=== PATIENT | female | born 1960 | race Caucasian/White ===

== ENCOUNTER 2020-07-19 13:47 | Outpatient (CLI) | payer OTHER ==
--- NOTE | 2020-07-19 16:49 | XRAY Report ---
PROCEDURE: Foot 3 View RT INDICATIONS: PAIN IN RIGHT FOOT TECHNIQUE: 3 views of the foot were acquired. COMPARISON: None FINDINGS: Bones: No fractures or dislocations. No suspicious bony lesions. Soft tissues: No tibiotalar joint effusion. Achilles tendon appears normal. IMPRESSION: No fracture. No osseous lesion. If there is continued clinical concern for pathology, then repeat radha in film radiographs (7-10 days) or advanced imaging (CT, MR, bone scan) should be considered for furt her evaluation. Reviewed by: Maya Johnson MD, PhD on 07/19/2020 4:48 PM PDT Approved by: Maya Johnson MD, PhD on 07/19/2020 4:48 PM PDT Station ID: [id number]
== END 2020-07-19 13:48 | disposition home or self-care (01) ==
LOC: DI.S 13:47
PROVIDERS: ATTEND Nurse Practitioner Family
DX: M79.671 Pain in right foot (principal)

== ENCOUNTER 2021-04-06 08:00 | Outpatient (CLI) | payer OTHER | END 2021-04-06 23:59 | disposition home or self-care (01) | LOC: LAB.S 08:00 | PROVIDERS: ATTEND Emergency Medicine | DX: J30.9 Allergic rhinitis, unspecified (principal) | CPT/HCPCS: 87070; 87220 ==

== ENCOUNTER 2022-08-28 08:13 | Outpatient (CLI) | payer BC ==
--- NOTE | 2022-08-28 16:24 | DEXA Report ---
PROCEDURE: Dexa Spine and/or Hip INDICATIONS: POST MENOPAUSAL TECHNIQUE: Dual energy x-ray absorptiometry (DXA) was performed on a [employer] System. Regions measur ed are the AP Spine, femoral neck, and if needed forearm. COMPARISON: None. FINDINGS: Lumbar Spine: Bone Mineral Density 1.232 g/cm/cm,T score 0.4, normal Left Hip: Bone Mineral Density 0.984 g/cm/cm,T score -0.2, normal Left Femoral Neck: Bone Mineral Density 0.882 g/cm/cm, T score -1.1, minimal osteopenia (T score greater or equal to -1.0: NORMAL) (T score from -1.1 to -2.4: OSTEOPENIA) (T score less than or equal to -2.5 to: OSTEOPOROSIS) Impression: Minimal osteopenia within the left femoral neck. Patients with diagnosis of osteoporosis or osteopenia should have regular bone mineral density assess ment. For those eligible for Medicare, routine testing is allowed once every 2 years. Testing frequ ency can be increased for patients who have rapidly progressing disease or for those who are receivin g medical therapy to restore bone mass. Reviewed by: Delfina Jacobs MD on 08/28/2022 4:22 PM PDT Approved by: Delfina Jacobs MD on 08/28/2022 4:22 PM PDT Station ID: [id number]
== END 2022-08-28 08:14 | disposition home or self-care (01) ==
LOC: DI 08:13
PROVIDERS: ATTEND Nurse Practitioner Family
DX: Z78.0 Asymptomatic menopausal state (principal); M85.88 Other specified disorders of bone density and structure, other site

== ENCOUNTER 2023-02-21 11:00 | Outpatient (CLI) | payer BC | END 2023-02-21 11:01 | disposition home or self-care (01) | LOC: NS 11:00 | PROVIDERS: ATTEND Nurse Practitioner Family | DX: E78.2 Mixed hyperlipidemia (principal); E66.3 Overweight; Z71.3 Dietary counseling and surveillance; Z71.89 Other specified counseling; Z68.27 Body mass index [BMI] 27.0-27.9, adult | CPT/HCPCS: 97802 ==

== ENCOUNTER 2023-09-01 09:22 | Emergency (ER) | payer BC ==
[2023-09-01 10:04] LABS: BASOPHILS # (AUTO) 0.1 10^3/uL (0.0-0.1); BASOPHILS % (AUTO) 0.8 %; EOSINOPHILS # (AUTO) 0.1 10^3/uL (0.0-0.7); HCT - HEMATOCRIT 39.5 % (37.0-47.0); HGB - HEMOGLOBIN 12.9 g/dL (12.0-16.0); LYMPHOCYTES # (AUTO) 1.9 10^3/uL (1.5-3.5); LYMPHOCYTES % (AUTO) 32.3 %; MEAN CORPUSCULAR HEMOGLOBIN 30.9 pg (27.0-31.0); MEAN CORPUSCULAR HGB CONC 32.7 g/dL (32.0-36.0); MEAN CORPUSCULAR VOLUME 94.7 fL (81.0-99.0); MEAN PLATELET VOLUME 10.3 fL (7.9-10.8); MONOCYTES # (AUTO) 0.6 10^3/uL (0.0-1.0); MONOCYTES % (AUTO) 9.2 %; NEUTROPHILS # (AUTO) 3.3 10^3/uL (1.5-6.6); NEUTROPHILS % (AUTO) 55.5 %; PLT - PLATELET COUNT 242 10^3/uL (130-450); RED BLOOD COUNT 4.17 10^6/uL (4.20-5.40); RED CELL DISTRIBUTION WIDTH 12.4 % (12.0-15.0)
--- NOTE | 2023-09-01 10:06 | ED Physician Documentation ---
PD HPI CHEST PAIN - Stated complaint Stated Complaint: CHEST PX,SOA,ABD PX - Chief complaint Chief Complaint: Cardiac - History obtained from History obtained from: Patient - History of Present Illness Timing - onset: How many days ago (2) Timing - onset during: Rest, Light activity Timing - duration: Days (2) Timing - details: Gradual onset, Still present, Waxing and waning Quality: Aching, Pain Review of Systems Constitutional: denies: Fever, Chills Nose: denies: Rhinorrhea / runny nose, Congestion Throat: denies: Sore throat Respiratory: denies: Cough PD PAST MEDICAL HISTORY - Past Medical History Cardiovascular: Hypertension Respiratory: None Endocrine/Autoimmune: None GI: GERD ASSOCIATE ACCOUNT DIRECTOR: None : None HEENT: None Psych: None Musculoskeletal: None Derm: None - Past Surgical History Past Surgical History: Yes - Present Medications Home Medications: Ambulatory Orders Medication Instructions Recorded Confirmed Fexofenadine HCl [Martina] 90 mg PO BID 06/21/13 09/01/23 Fluticasone Furoate [Veramyst] 10 gm NS DAILY 06/21/13 09/01/23 Olopatadine HCl [Patanase] 30.5 gm NS DAILY 06/21/13 09/01/23 Esomeprazole Magnesium [Nexium] 40 mg PO DAILY 07/23/13 09/01/23 lisinopriL [Lisinopril] 5 mg PO DAILY 09/05/17 09/01/23 Azelastine HCl 137 mcg NS DAILY 09/01/23 09/01/23 - Allergies Allergies/Adverse Reactions: Allergies Allergy/AdvReac Type Severity Reaction Status Date / Time lisinopril Allergy Anaphylaxis Verified 09/01/23 09:33 meperidine HCl * Allergy vomiting Verified 09/05/17 20:15 [From Demerol] Sulfa (Sulfonamide Allergy Rash Verified 09/05/17 20:15 Antibiotics) - Social History Does the pt smoke?: No Smoking Status: Never smoker Does the pt drink ETOH?: Yes Does the pt have substance abuse?: No - Immunizations Immunizations are current?: No - POLST Patient has POLST: No PD ED PE NORMAL - Vitals Vital signs reviewed: Yes - General General: Alert and oriented X 3, Well developed/nourished - Cardiac Cardiac: RRR, No murmur - Respiratory Respiratory: Clear bilaterally, Other (focal chestwall markedly tenderness left lower sternal border.) - Abdomen Abdomen: Soft, Non tender - Back Back: No CVA TTP - Derm Derm: Normal color, Warm and dry, No rash, Other (no skin tenderness in back nor axilla. ) - Extremities Extremities: No edema, No calf tenderness / cord Results - Vitals Vitals: Oxygen O2 Source Room air - EKG (time done) 09:28 EKG releavant findings:: EKG personally interpreted by author of this note. Relevant findings are: Rate: Rate (enter#) (78) Rhythm: NSR [place]: Normal Intervals: Normal NH QRS: Normal Ischemia: Normal ST segments. No: ST elevation c/w ischemia, ST depression - Labs Labs: Laboratory Tests 09/01/23 09/01/23 09:56 09:56 WBC 6.0 RBC 4.17 L Hgb 12.9 Hct 39.5 MCV 94.7 MCH 30.9 MCHC 32.7 RDW 12.4 Plt Count 242 MPV 10.3 Neut # (Auto) 3.3 Lymph # (Auto) 1.9 [place] # (Auto) 0.6 Eos # (Auto) 0.1 Baso # (Auto) 0.1 Absolute Nucleated RBC 0.00 Nucleated RBC % 0.0 Sodium 139 Potassium 3.7 Chloride 101 Carbon Dioxide 32 Anion Gap 6.0 BUN 31 H Creatinine 0.9 Estimated GFR (MDRD) 63 L Glucose 103 Calcium 10.3 Total Bilirubin 0.3 AST 26 ALT 24 Alkaline Phosphatase 86 Troponin I High Sens 3.3 Total Protein 7.5 Albumin 4.7 Globulin 2.8 Albumin/Globulin Ratio 1.7 Lipase 36 - Rads (name of study) No standard instances Relevant Findings:: Prelim report reviewed (no acute process), EMP independent interpretation of test PD Medical Decision Making - ED course Complexity details: reviewed results (ECG nonischemic and CXR clear. Troponin normal in the setting of chest pain for over 24 hours. ), re-evaluated patient (elements are c/w costochondral with left chestwall tenderness and patterned toward left axilla. No rash nor skin tenderness. Consider early shingles or costochondral. Some element c/w esophagitis with onset eating spicy. Does not appear ill. Normal CXR. I did not feel CT needed (esophageal). ), considered differential, d/w patient Departure - Departure Disposition: 01 Home, Self Care Clinical Impression: Chest pain, Chest wall pain Condition: Stable Record reviewed to determine appropriate education?: Yes Instructions: ED Chest Pain Costochondritis Comments: Your EKG, chest x-ray, blood tests are normal. In particular no signs of heart attack, heart failure, pneumonia, collapsed lung, pancreatitis or liver inflammation. Elements of your symptoms sound like esophagitis/gastritis with irritation of the esophagus and stomach. For that I would suggest using your omeprazole regularly for the next month. In the short-term I would add regular antacids angel ch as Maalox or Mylanta or similar after meals and before bedtime over the next several days to a week. Elements of your symptoms sound like inflammation of the chest wall. You could potentially see chiropractic treatment for that. Otherwise commonly we would think of using anti-inflammatories but I would be reluctant for that given that alternatively may be an irritated stomach. Therefore I would just suggest Tylenol 500 to 650 mg 4 times daily for the next several days to week to help with the pains. See if it improves over the next several days in particular and improved enough with the above medications in the meadnwhile to be less uncomfortable. Recheck if new symptoms develop such as rash or fevers or cough etc. otherwise follow-up with your primary care or back to the ER if not improved well over the next several days and resolved by 3 to 5 days. Forms: PCP List Discharge Date/Time: 09/01/23 12:28
--- NOTE | 2023-09-01 10:15 | XRAY Report ---
PROCEDURE: Chest 1 View X-Ray INDICATIONS: Chest pain TECHNIQUE: One view of the chest was acquired. COMPARISON: 06/21/2013 FINDINGS: Surgical changes and devices: None. Lungs and pleura: No pleural effusions or pneumothorax. Lungs are clear. Mediastinum: Mediastinal contours appear normal. Heart size is normal. Bones and chest wall: No suspicious bony lesions. Overlying soft tissues appear unremarkable. IMPRESSION: No acute cardiopulmonary process. Reviewed by: Israel Newsome on 09/01/2023 10:13 AM PDT Approved by: Israel Newsome on 09/01/2023 10:13 AM PDT Station ID: [id number]
[2023-09-01 10:33] LABS: ALBUMIN 4.7 g/dL (3.2-5.5); ALBUMIN/GLOBULIN RATIO 1.7 (1.0-2.2); BILIRUBIN,TOTAL 0.3 mg/dL (0.2-1.0); CALCIUM 10.3 mg/dL (8.5-10.3); CREATININE 0.9 mg/dL (0.6-1.3); POTASSIUM 3.7 mmol/L (3.5-4.5); TOTAL PROTEIN 7.5 g/dL (6.4-8.9)
[2023-09-01 10:37] LABS: TROPONIN I HIGH SENSITIVITY 3.3 ng/L (2.3-14.8)
[2023-09-01] MEDS ORDERED: ACETAMINOPHEN 325 MG TABLET PO STA (11:41)
[2023-09-01] MEDS ORDERED: MAG HYDROX/AL HYDROX/SIMETH 30 ML UDC PO STA (11:41)
[2023-09-01] MEDS ORDERED: KETOROLAC 15 MG/ML VIAL IVP STA (11:41)
[2023-09-01] MEDS ORDERED: LIDOCAINE VISCOUS 2% 15 ML ORAL SYRINGE MM STA (11:42)
[2023-09-01 12:18] VITALS: BP 125/85; O2SAT 99
== END 2023-09-01 12:28 | disposition home or self-care (01) ==
LOC: ED 09:22
DX: R07.89 Other chest pain (principal); I10 Essential (primary) hypertension
CPT/HCPCS: 36415; 71045; 80053; 83690; 84484; 85025; 93005; 96374; 99283; 99284; A9270